=== PATIENT | female | born 1960 | race Caucasian/White ===

== ENCOUNTER → 2017-06-07 | Outpatient (CLI) | payer OTHER ==
--- NOTE | 2017-06-07 13:28 | REP ---
BILATERAL MAMMOGRAM: PERSONAL HISTORY: Bilateral breast cancer as well as breast cancer in mother. Comparison is made with multiple prior exams, most recent of which is 06/06/2016. Bilateral architectural distortion and postsurgical change appears stable. There are coarse benign-type calcifications in the left breast. However, in the right breast on the CC view anteromedially, there are tiny calcifications which are not definitely seen on prior studies. These are not well seen on the MLO view. IMPRESSION: ACR 0 incomplete. Possible new tiny calcifications right breast medially. Recommend magnification views to further evaluate. ACR 0 incomplete. BI-RADS/ACR category 0 mammogram, incomplete. Additional imaging and/or prior images are needed before a final assessment can be assigned. This mammogram was interpreted with the aid of an FDA-approved computer-aided detection system. The patient states she/he had a clinical breast exam in 05/2017. The patient letter being requested is M0. Signed by Shon Carson MD 06/07/2017 05:18 P
== END ==
LOC: M RAD 09:23
PROVIDERS: ATTEND Internal Medicine Medical Oncology
DX: Z12.31 Encounter for screening mammogram for malignant neoplasm of breast (principal)

== ENCOUNTER → 2017-06-14 | Outpatient (CLI) | payer OTHER ==
--- NOTE | 2017-06-14 11:54 | REP ---
Digital diagnostic unilateral right breast mammography with CAD: History: This patient has a personal history of bilateral breast cancer, most recently in 2014 on the right. She is status post right breast radiation therapy. Recent mammography June 07, 2017 was BIRADS category 0 because of possible new tiny calcifications medially in the right breast. Diagnostic imaging was recommended. Comparison mammography is reviewed from June 07, 2017, June 06, 2016, and September 05, 2015. Findings: Magnified focal spot compression CC, MLO and true MLO views confirm the presence of a tiny, 4 mm nodular density containing new microcalcifications in the inferior and medial quadrant of the right breast anterior third. In the medial right mid breast, there is a needle biopsy marker clip as seen previously. There is an area of postoperative fat necrosis and scarring at approximately 12 o'clock in the right breast. Right breast mammogram images are otherwise unremarkable. Impression: BIRADS category 4 suspicious right breast mammography. Microcalcifications in a tiny nodular density inferomedial quadrant. Recommend stereotactic needle biopsy. BI-RADS/ACR category 4 mammogram. Suspicious abnormality - biopsy should be considered. Usually requires biopsy. This mammogram was interpreted with the aid of an FDA-approved computer-aided detection system. The patient states she had a clinical breast exam in May 2017 The patient letter being requested is M4. Signed by Mehul Patricio MD 06/14/2017 03:51 P
== END ==
LOC: M RAD 10:54
PROVIDERS: ATTEND Internal Medicine Medical Oncology
DX: Z12.31 Encounter for screening mammogram for malignant neoplasm of breast (principal)

== ENCOUNTER → 2017-08-20 | Outpatient (CLI) | payer OTHER ==
--- NOTE | 2017-08-21 15:11 | DEXA ---
AP SPINE L1 - L4 0.993 -1.6 -0.5 LT FEMUR TOTAL 1.119 0.9 1.8 RT FEMUR TOTAL 1.133 1.0 1.9 TOTAL BODY TOTAL OTHER COMMENTS: Normal bone densitometry of the hips. There is low bone density of the spine. The decreased density of the spine does represent a significant change. The decreased density of the left hip does not represent a significant change. The decreased density of the right hip does not represent significant change. The density of the spine is decreased 9.6% since the initial exam on 05/23/2007. The spine density has decreased 3.6% since the most recent exam on 08/29/2016. The density of the left hip has increased 0.1% since the initial exam on 2006. The density of the left hip has decreased 0.8% since the most recent exam on . The density of the right hip has decreased 0.3% since the initial exam on 2006. The density of the right hip has decreased 1.7% since the most recent exam on . FOLLOW-UP: Recommendation for the next bone density exam: 2 years. BEAU
== END ==
LOC: M WHC 11:31
PROVIDERS: ATTEND Internal Medicine Medical Oncology
DX: M85.851 Other specified disorders of bone density and structure, right thigh (principal); M85.852 Other specified disorders of bone density and structure, left thigh; Z78.0 Asymptomatic menopausal state

== ENCOUNTER → 2018-07-10 | Outpatient (CLI) | payer OTHER | LOC: M RAD 11:45 | DX: Z12.31 Encounter for screening mammogram for malignant neoplasm of breast (principal) | CPT/HCPCS: 77067 ==

== ENCOUNTER → 2019-10-20 | Outpatient (CLI) | payer OTHER ==
[~2019-10-20] MED LIST: CALC1TAB42 PO; CALC500C16 PO; CALC500T44 PO; CHOL100029 PO; FEMA2.5T4 PO; MULT1TAB8 PO; MULTTAB63 PO; VITA100066 PO
[2019-10-20 09:21] LABS: BASO % 0.7 % (0.0-1.0); EOS # 0.1 10^3/uL (0.0-0.5); EOS % 2.5 % (0.0-3.0); HEMATOCRIT 46.1 % (36.0-47.0); HEMOGLOBIN 14.6 g/dl (12.0-15.5); LYMPH # 2.2 10^3/uL (1.5-5.0); LYMPH % 49.8 % (24.0-44.0); MEAN CORPUSCULAR HEMOGLOBIN 30.5 pg (27.0-33.0); MEAN CORPUSCULAR HGB CONC 31.7 g/dl (32.0-36.5); MEAN CORPUSCULAR VOLUME 96.4 fl (80.0-96.0); MONO # 0.4 10^3/uL (0.0-0.8); MONO % 9.3 % (0.0-5.0); NEUTROPHILS # 1.6 10^3/uL (1.5-8.5); NEUTROPHILS % 37.5 % (36.0-66.0); PLATELET COUNT, AUTOMATED 147 10^3/uL (150-450); RED BLOOD COUNT 4.78 10^6/uL (4.00-5.40); WHITE BLOOD COUNT 4.3 10^3/uL (4.0-10.0)
[2019-10-20 11:11] LABS: ALBUMIN 4.1 GM/DL (3.2-5.2); ALT/SGPT 31 U/L (12-78); BLOOD UREA NITROGEN 20 MG/DL (7-18); CALCIUM LEVEL 9.4 MG/DL (8.8-10.2); CARBON DIOXIDE LEVEL 32 MEQ/L (21-32); CHLORIDE LEVEL 104 MEQ/L (98-107); CHOLESTEROL LEVEL 200 MG/DL (<200); CHOLESTEROL RISK RATIO 3.278 (<5); CREATININE FOR GFR 0.84 MG/DL (0.55-1.30); FREE T4 0.91 NG/DL (0.76-1.46); GLOMERULAR FILTRATION RATE > 60.0 (>45); GLUCOSE, FASTING 94 MG/DL (70-100); HDL CHOLESTEROL 61 MG/DL (>40); LDL CHOLESTEROL 124 MG/DL (<100); NON-HDL-C 139 MG/DL; POTASSIUM SERUM 4.1 MEQ/L (3.5-5.1); SODIUM LEVEL 141 MEQ/L (136-145); TOTAL 25(OH) VITAMIN D 48.6 NG/ML (30.0-100.0); TOTAL PROTEIN 6.6 GM/DL (6.4-8.2); TRIGLYCERIDES LEVEL 75 MG/DL (<150)
--- NOTE | 2019-10-21 11:59 | ECHO ---
DATE OF PROCEDURE: 10/20/2019 DATE OF : 1960 AGE: 59 GENDER: Female HEIGHT: 61 inches WEIGHT: 145 pounds BODY SURFACE AREA: 1.64 m2 OUTPATIENT REFERRING PHYSICIAN: VITO Moser INDICATION: Murmur. MEASUREMENTS: 2-D Measurements: RV: 3.3 cm LV: 5.0 cm Septum: 0.9 cm Posterior wall: 0.9 cm Aortic root: 2.5 cm LA: 3.7 cm LVEF: 60% Doppler Measurements: AV: 1.3 m/s LVOT: 0.8 m/s LVOT diameter: 2.0 cm MV - E: 78, A: 55, EA ratio: 1.4 Early mitral deceleration time: 155 ms E prime medial: 7.2, A prime medial: 9, E prime lateral: 9 Average E/E prime ratio: 9.6 PV: 0.9 m/s Pulmonary artery acceleration time: 110 ms RVSP: 29-32 mmHg IVC: 1.6 cm COMMENTS: Sinus bradycardia without intraventricular conduction disturbance. Occasional escape beats. M-mode and two-dimensional echocardiography was performed with pulsed, continuous wave, color flow and tissue Doppler studies. Normal left ventricular size, wall thickness and wall motion. Normal left atrial size and Doppler assessment of LV diastolic function and estimated mean left atrial pressure. Normal right heart chamber sizes and motion with Doppler evidence of pulmonary pressure upper limits of normal to slightly increased. Normal IVC size and collapse against an elevated central venous pressure. Normal-appearing aortic valve with normal cusp separation and trace aortic insufficiency. Normal diameters of the aortic root and ascending aorta. Normal-appearing mitral valvular apparatus with normal leaflet excursion and no posterior systolic buckling. Mild mitral insufficiency (physiologic). Normal-appearing tricuspid valve with mild to moderate insufficiency. No apparent intracardiac mass or pericardial effusion.
== END ==
LOC: M CARPUL 08:39
PROVIDERS: ATTEND Physician Assistant
DX: Z85.3 Personal history of malignant neoplasm of breast (principal); Z13.220 Encounter for screening for lipoid disorders; Z13.29 Encounter for screening for other suspected endocrine disorder; R01.1 Cardiac murmur, unspecified; Z92.21 Personal history of antineoplastic chemotherapy

== ENCOUNTER → 2019-11-10 | Outpatient (CLI) | payer OTHER ==
--- NOTE | 2019-11-10 15:00 | REPMRS ---
Patient History The patient states she has not had a clinical breast exam in over a year. Patient is postmenopausal, has history of bilateral breast cancer at age 54, and had previous chemotherapy at age 45. Family history of breast cancer at age 60 in mother. Benign radio exam breast specimen of the right breast, October 07, 2014. Benign localization of breast nodule of the right breast, October 07, 2014. Malignant radio exam breast specimen of the right breast, August 23, 2014. Malignant stereotatic loc for ea lesion of the right breast, August 23, 2014. Malignant lumpectomy of the left breast, 2005. Chemotherapy, 2005. Benign core biopsy of both breasts. Radiation therapy of the right breast. Took tamoxifen for 5 years. Digital Woman Screen Mammo: November 10, 2019 - Exam #: [id number] Bilateral CC and MLO view(s) were taken. Technologist: Lidya Chung, Technologist Prior study comparison: July 10, 2018, bilateral digital mammo screening bilat, performed at [facility]. June 07, 2017, bilateral digital mammo screening bilat, performed at [facility]. June 06, 2016, bilateral digital mammo screening bilat, performed at [facility]. FINDINGS: There are scattered fibroglandular densities. There are stable post-treatment changes again noted bilaterally in this patient with personal history of bilateral breast malignancy. A needle biopsy marker is again seen on the left adjacent to an area of postoperative fat necrosis. There are two needle biopsy markers visible in the right breast. There is a surgical clip visible in the left axilla. There has been no change in the appearance of the mammogram from the prior studies. There is a mild amount of scattered fibroglandular density which is fairly symmetric. There is no interval development of dominant mass, architectural distortion, or grouped microcalcification suggestive of malignancy. 3-D tomosynthesis shows no additional findings. Assessment: BI-RADS/ACR category 2 mammogram. Benign Findings. Recommendation Routine screening mammogram of both breasts in 1 year (for women over age 40). This mammogram was interpreted with the aid of an FDA-approved computer-aided dectection system. Electronically Signed By: Joshua Patricio MD 11/10/19 [id number]
== END ==
LOC: M WHC 11:23
PROVIDERS: ATTEND Internal Medicine Medical Oncology
DX: Z12.31 Encounter for screening mammogram for malignant neoplasm of breast (principal); Z78.0 Asymptomatic menopausal state; Z85.3 Personal history of malignant neoplasm of breast; Z92.21 Personal history of antineoplastic chemotherapy; Z80.3 Family history of malignant neoplasm of breast; Z92.3 Personal history of irradiation; D24.1 Benign neoplasm of right breast; D24.2 Benign neoplasm of left breast

== ENCOUNTER 2020-02-09 11:27 | Day surgery (SDC) | payer OTHER ==
[~2020-02-09] VITALS: Ht 165.1 cm; Wt 0.5 kg
[~2020-02-09 11:27] MED LIST changes: +NS 1,000 ML IV ONE
[2020-02-09] MEDS ORDERED: LIDOCAINE 2% 100MG/5ML SDV (FOR ANES.) As Ordered ONE (12:49)
[2020-02-09] MEDS ORDERED: propofoL 200 MG/20 ML VIAL As Ordered ONE (12:49)
--- NOTE | 2020-02-09 13:33 | ROOR ---
Patient Name: Olga Mariscal Procedure Date: 02/09/2020 12:57 PM Date of : 1960 Age: 60 Room: [facility] Gender: Female Note Status: Finalized Procedure: Colonoscopy Indications: Screening for colorectal malignant neoplasm, Last colonoscopy: June 2009 Providers: Yassine Jeffers MD Referring MD: Hannah BOCANEGRA DO Requesting Provider: Medicines: Monitored Anesthesia Care Complications: No immediate complications. Procedure: Pre-Anesthesia Assessment: - Prior to the procedure, a History and Physical was performed, and patient medications and allergies were reviewed. The patient is competent. The risks and benefits of the procedure and the sedation options and risks were discussed with the patient. All questions were answered and informed consent was obtained. Patient identification and proposed procedure were verified by the physician, the nurse and the anesthesiologist in the procedure room. Mental Status Examination: alert and oriented. Airway Examination: normal oropharyngeal airway and neck mobility. Prophylactic Antibiotics: The patient does not require prophylactic antibiotics. Prior Anticoagulants: The patient has taken no previous anticoagulant or antiplatelet agents. ASA Grade Assessment: II - A patient with mild systemic disease. After reviewing the risks and benefits, the patient was deemed in satisfactory condition to undergo the procedure. The anesthesia plan was to use monitored anesthesia care (MAC). Immediately prior to administration of medications, the patient was re-assessed for adequacy to receive sedatives. The heart rate, respiratory rate, oxygen saturations, blood pressure, adequacy of pulmonary ventilation, and response to care were monitored throughout the procedure. The physical status of the patient was re-assessed after the procedure. The Colonoscope was introduced through the anus and advanced to the cecum, identified by appendiceal orifice and ileocecal valve. The colonoscopy was performed without difficulty. The patient tolerated the procedure well. The quality of the bowel preparation was excellent. Findings: The perianal and digital rectal examinations were normal. Many medium-mouthed diverticula were found in the sigmoid colon. The exam was otherwise without abnormality. Impression: - Diverticulosis in the sigmoid colon. - The examination was otherwise normal. - No specimens collected. Recommendation: - Discharge patient to home. - Resume previous diet. - Continue present medications. - Repeat colonoscopy in 10 years for screening purposes. Yassine Jeffers MD Yassine Jeffers MD 02/09/2020 1:33:24 PM Electronically signed by Yassine Jeffers MD Number of Addenda: 0 Note Initiated On: 02/09/2020 12:57 PM Estimated Blood Loss: Estimated blood loss: none.
[2020-02-09 13:58] VITALS: BP 140/82
== END 2020-02-09 13:59 | disposition home or self-care (01) ==
LOC: M OPP 11:27
PROVIDERS: ATTEND Surgery
DX: Z12.11 Encounter for screening for malignant neoplasm of colon (principal); K57.30 Diverticulosis of large intestine without perforation or abscess without bleeding; Z88.8 Allergy status to other drugs, medicaments and biological substances; Z85.3 Personal history of malignant neoplasm of breast; Z92.3 Personal history of irradiation; Z92.21 Personal history of antineoplastic chemotherapy

== ENCOUNTER → 2020-04-14 | Outpatient (CLI) | payer OTHER ==
[~2020-04-14] MED LIST changes: -NS 1,000 ML IV ONE
== END ==
LOC: M RAD 11:00
PROVIDERS: ATTEND Physician Assistant
DX: M79.606 Pain in leg, unspecified (principal); I83.819 Varicose veins of unspecified lower extremity with pain; I87.2 Venous insufficiency (chronic) (peripheral)

== ENCOUNTER → 2020-04-18 | Outpatient (CLI) | payer OTHER ==
--- NOTE | 2020-05-31 08:47 | REP ---
BILATERAL LOWER EXTREMITY DUPLEX DOPPLER ARTERIAL ULTRASOUND HISTORY: Leg pain. TECHNIQUE: Real-time ultrasound evaluation and duplex Doppler interrogation of bilateral lower extremity arterial systems is performed. FINDINGS: There is minimal scattered plaquing and intimal thickening diffusely bilaterally. There is no evidence of hemodynamically significant stenosis bilaterally with duplex Doppler evaluation. YAYO right 1.2 and left 1.1. Diffuse triphasic waveforms are seen bilaterally. VELOCITY CHART PSV RIGHT (cm/s) PSV LEFT (cm/s) Femoral artery 144 103 Profunda 60 48 Proximal SFA 81 102 Mid-SFA 92 89 Distal SFA 86 111 Popliteal 72 55 Proximal JOSEMANUEL 55 69 Tibioperoneal trunk 71 62 Proximal FARMWORKER MACHINE 62 73 Distal FARMWORKER MACHINE 129 97 Distal JOSEMANUEL 71 79 BILATERAL LOWER EXTREMITY DUPLEX DOPPLER VENOUS ULTRASOUND WITH EVALUATION FOR VENOUS REFLUX: TECHNIQUE: Real time compression and duplex Doppler interrogation of bilateral lower extremity deep venous systems is performed. FINDINGS: Bilaterally, the common femoral, superficial femoral and popliteal veins are fully compressible with transducer pressure and demonstrated normal spontaneous and phasic flow without evidence of deep venous thrombosis. Evaluation for venous reflux on the right demonstrates no significant reflux in the deep vein system with only mild reflux in the distal superficial femoral vein. There is an anterior accessory greater saphenous vein present which measures 6 mm and demonstrates reflux. There is no reflux in the greater saphenous vein at the saphenofemoral junction, which measures 5 mm, at the mid- thigh, which measures 3 mm. There is reflux in the distal greater saphenous vein with a duration of 4.9 seconds, AP diameter 6 mm. A large collateral vessel of the distal greater saphenous vein does not demonstrate reflux. There is a collateral vessel communicating with the anterior accessory greater saphenous vein proximally. On the left, there is mild reflux in the common femoral vein. There is an anterior accessory greater saphenous vein present without reflux. There is reflux in the greater saphenous vein at the saphenofemoral junction with a duration of 3.8 second, AP diameter 8 mm, also in the mid-thigh with a duration of 4 seconds, AP diameter of 6 mm and at the knee, duration of 2.4 seconds, AP diameter 6 mm. There is no reflux in the lesser saphenous vein, which measures 3 mm. [facility]
== END ==
LOC: M RAD 12:00
PROVIDERS: ATTEND Physician Assistant
DX: M79.604 Pain in right leg (principal); M79.605 Pain in left leg; I83.819 Varicose veins of unspecified lower extremity with pain; I87.2 Venous insufficiency (chronic) (peripheral)

== ENCOUNTER → 2020-06-13 | Outpatient (CLI) | payer OTHER ==
[2020-06-13 12:05] LABS: BASO % 0.4 % (0.0-1.0); EOS # 0.1 10^3/uL (0.0-0.5); EOS % 1.6 % (0.0-3.0); HEMATOCRIT 43.8 % (36.0-47.0); LYMPH # 1.7 10^3/uL (1.5-5.0); LYMPH % 30.2 % (24.0-44.0); MEAN CORPUSCULAR HEMOGLOBIN 30.5 pg (27.0-33.0); MEAN CORPUSCULAR VOLUME 95.4 fl (80.0-96.0); MONO # 0.5 10^3/uL (0.0-0.8); NEUTROPHILS # 3.4 10^3/uL (1.5-8.5); NEUTROPHILS % 59.4 % (36.0-66.0); PLATELET COUNT, AUTOMATED 137 10^3/uL (150-450); RED BLOOD COUNT 4.59 10^6/uL (4.00-5.40); WHITE BLOOD COUNT 5.6 10^3/uL (4.0-10.0)
[2020-06-13 12:40] LABS: ALBUMIN 3.7 GM/DL (3.2-5.2); ALT/SGPT 28 U/L (12-78); BILIRUBIN,TOTAL 1.4 MG/DL (0.2-1.0); BLOOD UREA NITROGEN 15 MG/DL (7-18); CALCIUM LEVEL 9.1 MG/DL (8.8-10.2); CARBON DIOXIDE LEVEL 30 MEQ/L (21-32); CHLORIDE LEVEL 108 MEQ/L (98-107); CHOLESTEROL LEVEL 179 MG/DL (<200); CHOLESTEROL RISK RATIO 2.841 (<5); CREATININE FOR GFR 0.78 MG/DL (0.55-1.30); FREE T4 0.93 NG/DL (0.76-1.46); GLOMERULAR FILTRATION RATE > 60.0 (>45); GLUCOSE, FASTING 82 MG/DL (70-100); HDL CHOLESTEROL 63 MG/DL (>40); LDL CHOLESTEROL 103 MG/DL (<100); NON-HDL-C 116 MG/DL; POTASSIUM SERUM 4.2 MEQ/L (3.5-5.1); SODIUM LEVEL 141 MEQ/L (136-145); TOTAL PROTEIN 6.4 GM/DL (6.4-8.2); TRIGLYCERIDES LEVEL 64 MG/DL (<150)
== END ==
LOC: M LAB 10:04
PROVIDERS: ATTEND Family Medicine
DX: Z13.29 Encounter for screening for other suspected endocrine disorder (principal); Z13.0 Encounter for screening for diseases of the blood and blood-forming organs and certain disorders involving the immune mechanism; Z13.220 Encounter for screening for lipoid disorders

== ENCOUNTER → 2020-07-12 | Outpatient (CLI) | payer OTHER ==
--- NOTE | 2020-07-12 13:46 | REP ---
INDICATION: LBP, PAIN IN R LEG *PT SENT TO FILE ROOM AREA. COMPARISON: Comparison radiographs are from large 16 2006.. TECHNIQUE: Seven views including flexion extension lateral views are obtained. FINDINGS: Lumbar vertebral body heights are preserved. Alignment is normal. There is slight straightening. No flexion-extension instability is seen. There is degenerative narrowing of the L4-5 and L3-4 discs with early osteophyte formation anteriorly at these levels. The degenerative disc changes and spurs are more prominent than on the 2007 prior study. There is no evidence of spondylolysis or spondylolisthesis. Calcified gallstones are again noted in the gallbladder. Sacrum and SI joints are intact. Psoas margins are symmetric. Pedicles and posterior elements are intact. IMPRESSION: Degenerative disc disease at L3-4 and L4-5 more prominent than on the 2007 prior study. Cholelithiasis. <Electronically signed by Joshua Patricio > 07/12/20 [id number]
== END ==
LOC: M LAB 12:19
PROVIDERS: ATTEND Family Medicine
DX: M54.5 Low back pain (principal); M79.604 Pain in right leg; M51.36 Other intervertebral disc degeneration, lumbar region; K80.20 Calculus of gallbladder without cholecystitis without obstruction

== ENCOUNTER → 2020-11-21 | Outpatient (CLI) | payer OTHER ==
[~2020-11-21] MED LIST changes: +D31000TA2 PO
--- NOTE | 2020-11-21 12:15 | REPMRS ---
Patient History The patient states she had a clinical breast exam in 11/2020. Patient is postmenopausal, has history of bilateral breast cancer at age 54, had previous chest radiation therapy at age 45, and had previous chemotherapy at age 45. Family history of breast cancer at age 60 in mother. Benign radio exam breast specimen of the right breast, October 07, 2014. Benign localization of breast nodule of the right breast, October 07, 2014. Malignant radio exam breast specimen of the right breast, August 23, 2014. Malignant stereotatic loc for ea lesion of the right breast, August 23, 2014. Malignant lumpectomy of the left breast, 2005. Chemotherapy, 2005. Benign core biopsy of both breasts. Radiation therapy of the right breast. Took tamoxifen for 5 years. Digital Woman Screen Mammo: November 21, 2020 - Exam #: [id number] Bilateral CC and MLO view(s) were taken. Technologist: Shona Koroma, Technologist Prior study comparison: November 10, 2019, bilateral digital woman screen mammo performed at [facility]. July 10, 2018, bilateral digital mammo screening bilat, performed at [facility]. FINDINGS: There are scattered fibroglandular densities. The Volpara volumetric breast density category is:B. There are stable post treatment changes in the left and the right breast. There has been no change in the appearance of the mammogram from the prior studies. There is a mild amount of scattered fibroglandular density which is fairly symmetric. There is no interval development of dominant mass, architectural distortion, or grouped microcalcification suggestive of malignancy. 3-D tomosynthesis shows no additional findings. Assessment: BI-RADS/ACR category 2 mammogram. Benign Findings. Recommendation Routine screening mammogram of both breasts in 1 year (for women over age 40). This mammogram was interpreted with the aid of an FDA-approved computer-aided dectection system. Electronically Signed By: Joshua Patricio MD 11/21/20 [id number]
== END ==
LOC: M WHC 11:13
PROVIDERS: ATTEND Internal Medicine Medical Oncology
DX: Z12.31 Encounter for screening mammogram for malignant neoplasm of breast (principal); Z78.0 Asymptomatic menopausal state; Z85.3 Personal history of malignant neoplasm of breast; Z92.21 Personal history of antineoplastic chemotherapy; Z92.3 Personal history of irradiation; Z80.3 Family history of malignant neoplasm of breast; Z86.018 Personal history of other benign neoplasm; Z92.29 Personal history of other drug therapy

== ENCOUNTER → 2021-08-09 | Outpatient (CLI) | payer OTHER ==
[~2021-08-09] MED LIST changes: -CALC500T44 PO; +OYST500T92 PO
== END ==
LOC: M WHC 13:23
PROVIDERS: ATTEND Student in an Organized Health Care Education/Training Program
DX: Z13.820 Encounter for screening for osteoporosis (principal)

== ENCOUNTER → 2021-11-29 | Outpatient (CLI) | payer OTHER ==
[~2021-11-29] MED LIST changes: -D31000TA2 PO; +VITA100093 PO
== END ==
LOC: M WHC 07:26
PROVIDERS: ATTEND Student in an Organized Health Care Education/Training Program
DX: Z12.31 Encounter for screening mammogram for malignant neoplasm of breast (principal); Z85.3 Personal history of malignant neoplasm of breast; Z92.3 Personal history of irradiation

== ENCOUNTER → 2022-11-30 | Outpatient (CLI) | payer OTHER | LOC: M WHC 13:36 | PROVIDERS: ATTEND Student in an Organized Health Care Education/Training Program | DX: Z12.31 Encounter for screening mammogram for malignant neoplasm of breast (principal) ==

== ENCOUNTER → 2024-05-29 | Outpatient (CLI) | payer MEDICARE, OTHER | LOC: M WHC 05-21 09:36 | PROVIDERS: ATTEND Family Medicine | DX: Z12.31 Encounter for screening mammogram for malignant neoplasm of breast (principal); Z97.8 Presence of other specified devices ==

== ENCOUNTER → 2024-07-09 | Outpatient (REF) | LOC: M EMP 14:04 | PROVIDERS: ATTEND Family Medicine | DX: Z11.52 Encounter for screening for COVID-19 (principal) ==